=== PATIENT | male | born 1980 | race Caucasian/White ===

== ENCOUNTER 2017-12-29 10:32 | Observation (INO) ==
--- NOTE | 2017-12-29 11:01 | ERNOTE ---
Abdominal HPI - Narrative Date of Service: 12/29/17 - General Chief Complaint: Abdominal Pain Time Seen by Provider: 12/29/17 11:00 Source: patient Exam Limitations: no limitations - Immun/Allergies/Home Medications Immunizatons: IMMUNIZATION HX Immunizations Up to Date Yes Allergies/Adverse Reactions: Allergies Penicillins Allergy (Unknown, Verified 12/29/17 10:47) Home Medications: HOME MEDICATIONS NK [No Home Medication] 12/29/17 [Last Taken Unknown] - History of Present Illness Narrative: This 37-year-old man presents to the emergency room after being seen at the walk -in clinic. He has abdominal pain that began yesterday running when he woke up. He was out of town driving a semi. He was unable to make it home due to excessive pain and slept in his truck for 10 hours last night. He took multiple doses of Tylenol without much benefit. The pain began in the periumbilical region and has worsened. No fever or chills. He vomited once yesterday. He has not had diarrhea. He had a normal bowel movement this morning. No abdominal surgeries. He took some Pepto-Bismol without any improvement. He has not eaten anything today. He had water at 4 am. Date (Duration): 12/28/17 Timing: constant, getting worse Review of Systems - Review of Systems Constitutional: Present: no symptoms reported Respiratory: Present: no symptoms reported Cardiology: Present: no symptoms reported Gastrointestinal/Abdominal: Present: See HPI Genitourinary: Absent: dysuria, hematuria, decreased urinary output Musculoskeletal: Present: no symptoms reported Skin: Present: no symptoms reported Neurological: Present: no symptoms reported - Patient's Past Medical History Patient History - Medical: No pertinent hx Patient History - Cardiac/Respiratory: No pertinent hx Patient History - Cancer: No Hx of Cancer Patient History - Surgical Procedures: Back Surgery, Other Patient History - Other: None - Social History Living Situations: home Psych History: No pertinent hx Smoking Status: Never smoker Alcohol Use: none Drug Use: none - Immunizations Immunizations Up to Date: Yes Physical Exam - Physical Exam General Appearance: Present: wd/wn, moderate distress Head Exam: Present: normal inspection, no evidence of injury Respiratory: Present: no respiratory distress, normal breath sounds, lungs clear Cardiovascular/Chest: Present: regular rate, rhythm, no murmur Gastrointestinal/Abdominal: Present: normal bowel sounds, tenderness, guarding. Absent: rebound - RLQ Back Exam: Present: normal inspection, no CVA tenderness Extremity Exam: Present: normal inspection Neurological Exam: Present: alert, oriented, normal mood/affect Skin Exam: Present: normal color ED Progress - Date and Time Seen: Date and Time: 12/29/17 12:00 - Results and Orders Patient's Lab Results:: I have reviewed the patient's lab results. - Vital Signs Patient's Vital Signs:: I have reviewed the patient's vital signs. Vital Signs: Vital Signs 12/29/17 10:44 Temperature 37.0 C Pulse Rate 87 Respiratory 15 Rate Blood Pressure 144/84 O2 Sat by Pulse 98 Oximetry - CT/Ultrasound CT/Ultrasound Narrative: RLQ stranding, likely appendicitis. Repetitive whining about "lack of oral and IV contrast" noted x 3. - Progress/Reassessment Chief Complaint: Abdominal Pain Plan - Plan Plan: Discussed with Dr. Robledo prior to radiologist report as clearly appendicitis. He came to ER, saw patient, and took to ER. Successful appendectomy performed. Doing CT without IV and oral contrast expedited time to OR with an empty stomach. Departure Clinical Impression: Acute appendicitis with localized peritonitis - Departure Disposition: Short Term Hospital Inpatient Condition: Fair
[2017-12-29 11:04] LABS: Hematocrit 49.3 % (42.0-52.0); Hemoglobin 16.9 gm/dL (13.5-18.0); Mean Corpuscular Hemoglobin 30.5 pg (27-31); Mean Corpuscular Hgb Conc 34.3 g/dl (32-36); Mean Platelet Volume 11.3 fl (6.0-9.5); Neutrophil # 14.7 K/mm3 (1.3-6.0); Neutrophil % 83.1 % (42-75.0); Platelet Count 184 K/mm3 (150-450); Red Blood Count 5.54 M/mm3 (4.7-6.0); Red Cell Distribution Width 11.7 % (11.5-14.0); White Blood Count 17.7 K/mm3 (4.0-10.5)
[2017-12-29 11:11] LABS: Urine Appearance Clear (CLEAR); Urine Bacteria None Seen; Urine Bilirubin Negative (NEGATIVE); Urine Blood Negative /ul (NEGATIVE); Urine Color Yellow; Urine Ketone Negative (NEGATIVE); Urine Nitrite Negative (NEGATIVE); Urine Protein Negative (NEGATIVE); Urine RBC None Seen /hpf (0-5); Urine Urobilinogen Normal (NORMAL); Urine WBC None Seen /hpf (0-5)
[2017-12-29] MEDS ORDERED: HYDROmorphone HCL 1 MG/ML DISP.SYRIN IV ONE ×2 (11:13→13:20)
[2017-12-29] MEDS ORDERED: ONDANSETRON HCL/PF 2 MG/ML VIAL ONE (11:14)
[2017-12-29] MEDS ORDERED: ONDANSETRON HCL/PF 2 MG/ML VIAL IV ONE (11:14)
[2017-12-29] MEDS ORDERED: HYDROmorphone HCL 2 MG/ML VIAL ONE (11:14)
[2017-12-29 11:17] LABS: Albumin * 4.2 gm/dl (3.4-5.0); Anion Gap 10.7 mmol/L (6.8-13.8); BUN/Creatinine Ratio 8.8 (9.0-21.6); Bilirubin, Total 0.9 mg/dL (0.0-1.1); Ca. Corrected For Albumin 8.7 mg/dL (8.4-10.2); Calcium * 9.2 mg/dL (7.9-10.9); Potassium 3.7 mmol/L (3.4-4.6); Total Protein 7.9 gm/dL (6.2-8.2)
[2017-12-29] MEDS ORDERED: CEFOXITIN SODIUM 2 GM in DEXTROSE 5 % IN WATER 100 ML IV PRN ×2 (12:59)
--- NOTE | 2017-12-29 13:03 | HP ---
Chief Complaint - Chief Complaint Date of Service: 12/29/17 Time of Service: 13:00 Chief Complaint: abdominal pain History of Present Illness: Started with mid abdominal pain yesterday AM. 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 Pain continued and got very severe so he went to [facility] and was triaged to ER. WBC is elevated and CT shows acute appendicitis with gas at the tip. - Patient's Past Medical History Patient History - Medical: No pertinent hx Patient History - Cardiac/Respiratory: No pertinent hx Patient History - Cancer: No Hx of Cancer Patient History - Surgical Procedures: Back Surgery, Other Patient History - Other: None - Family History Family History:: no untoward family reactions to anesthesia, no familial bleeding tendencies - Social History Living Situations: home Psych History: No pertinent hx Smoking Status: Never smoker Alcohol Use: none Drug Use: none - Immunizations Immunizations Up to Date: Yes Review Of Systems (GEN) - Review of Systems Generalized/Overall Review: Absent: Chills, Fever EENTM: Present: No Symptoms Reported Respiratory: Present: No Symptoms Reported Cardiac: Present: No Symptoms Reported Abdominal: Present: Vomiting, Abdominal Pain, Other - had a BM yesterday Genitourinary: Present: No Symptoms Reported Musculoskeletal: Present: No Symptoms Reported Neurological: Present: No Symptoms Reported Skin: Present: No Symptoms Reported Misc: All systems neg except as marked Immunizations: IMMUNIZATION HX Immunizations Up to Date Yes Allergies/Adverse Reactions: Allergies Allergy/AdvReac Type Severity Reaction Status Date / Time Penicillins Allergy Unknown Verified 12/29/17 10:47 Home Medications: HOME MEDICATIONS NK [No Home Medication] 12/29/17 [Last Taken Unknown] Exam - Exam Vital Signs: Vital Signs - Last Taken Temp 37.0 C 12/29/17 10:44 Pulse 82 12/29/17 11:37 Resp 15 12/29/17 11:37 BP 128/78 12/29/17 11:37 Pulse Ox 93 12/29/17 11:37 Constitutional: Present: Alert, Oriented x3, Cooperative, Well developed, Well nourished, Mild distress ENT Exam: Present: normal ENT inspection, other - Malampati 4 airway Eye Exam: bilateral eye: normal inspection Neck: Present: full range of motion Back Exam: Present: normal inspection Respiratory: Present: lungs clear, normal breath sounds, no respiratory distress Cardiovascular/Chest: Present: normal peripheral pulses, regular rate, rhythm, no murmur Peripheral Pulses: radial (R): 4+, radial (L): 4+ Abdomen: Present: other - distended, tympanitic, VERY tender RLQ and also tender left side, guards only on right /Rectal: Present: Exam deferred Extremity: Present: normal range of motion, normal inspection, no pedal edema, no calf tenderness Skin Exam: Present: normal color, warm/dry 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, normal cerebellar test, no motor/ sensory deficits Appearance: Present: appropriate appearance, appropriate insight, neat Eye contact: Present: cooperative, good eye contact, normal speech Thoughts: Present: normal thought pattern Diagnostic Studies: Abnormal Lab Results 12/29/17 12/29/17 Range/Units 10:57 10:57 WBC 17.7 H (4.0-10.5) K/mm3 MPV 11.3 H (6.0-9.5) fl Immature Gran # (Auto) 0.07 H (0.000-0.0310) K/mm3 Neutrophils % 83.1 H (42-75.0) % Lymphocytes % 8.2 L (20-51) % Neutrophils # 14.7 H (1.3-6.0) K/mm3 Lymphocytes # 1.44 L (1.5-3.5) k/mm3 Monocytes # 1.4 H (0.0-1.0) k/mm3 BUN/Creatinine Ratio 8.8 L (9.0-21.6) Random Glucose 114 H (70-110) mg/dL Laboratory Results WBC 17.7 K/mm3 (4.0-10.5) H 12/29/17 10:57 RBC 5.54 M/mm3 (4.7-6.0) 12/29/17 10:57 Hgb 16.9 gm/dL (13.5-18.0) 12/29/17 10:57 Hct 49.3 % (42.0-52.0) 12/29/17 10:57 MCV 89.0 fl (78-100) 12/29/17 10:57 MCH 30.5 pg (27-31) 12/29/17 10:57 MCHC 34.3 g/dl (32-36) 12/29/17 10:57 RDW 11.7 % (11.5-14.0) 12/29/17 10:57 Plt Count 184 K/mm3 (150-450) 12/29/17 10:57 MPV 11.3 fl (6.0-9.5) H 12/29/17 10:57 Immature Gran % (Auto) 0.40 % (0.001-0.429) 12/29/17 10:57 Immature Gran # (Auto) 0.07 K/mm3 (0.000-0.0310) H 12/29/17 10:57 Neutrophils % 83.1 % (42-75.0) H 12/29/17 10:57 Lymphocytes % 8.2 % (20-51) L 12/29/17 10:57 Monocytes % 8.0 % (0.0-9) 12/29/17 10:57 Eosinophils % 0.1 % (0.0-3.0) 12/29/17 10:57 Basophils % 0.2 % (0.0-1.0) 12/29/17 10:57 Nucleated RBC % 0.0 k/mm3 (0-1) 12/29/17 10:57 Neutrophils # 14.7 K/mm3 (1.3-6.0) H 12/29/17 10:57 Lymphocytes # 1.44 k/mm3 (1.5-3.5) L 12/29/17 10:57 Monocytes # 1.4 k/mm3 (0.0-1.0) H 12/29/17 10:57 Eosinophils # 0.0 k/mm3 (0.0-0.7) 12/29/17 10:57 Absolute Basophils 0.0 k/mm3 (0.0-0.1) 12/29/17 10:57 Sodium 139 mmol/L (132-142) 12/29/17 10:57 Plasma Sodium 139 mmol/L (130-142) 12/29/17 10:57 Potassium 3.7 mmol/L (3.4-4.6) 12/29/17 10:57 Chloride 102 mmol/L (97-106) 12/29/17 10:57 Carbon Dioxide 30.0 mmol/L (24-32.6) 12/29/17 10:57 Anion Gap 10.7 mmol/L (6.8-13.8) 12/29/17 10:57 BUN 9 mg/dL (6-23) 12/29/17 10:57 Creatinine 1.02 mg/dL (0.4-1.4) 12/29/17 10:57 Est GFR (Non-Af Amer) 87 mL/min (60-130) 12/29/17 10:57 BUN/Creatinine Ratio 8.8 (9.0-21.6) L 12/29/17 10:57 Random Glucose 114 mg/dL (70-110) H 12/29/17 10:57 Calcium 9.2 mg/dL (7.9-10.9) 12/29/17 10:57 Calcium Adj for Albumin 8.7 mg/dL (8.4-10.2) 12/29/17 10:57 Total Bilirubin 0.9 mg/dL (0.0-1.1) 12/29/17 10:57 AST 8 U/L (0-48) 12/29/17 10:57 ALT 29 U/L (19-67) 12/29/17 10:57 Alkaline Phosphatase 71 U/L (50-170) 12/29/17 10:57 Total Protein 7.9 gm/dL (6.2-8.2) 12/29/17 10:57 Albumin 4.2 gm/dl (3.4-5.0) 12/29/17 10:57 Urine Color Yellow 12/29/17 10:57 Urine Appearance Clear (CLEAR) 12/29/17 10:57 Urine pH 6.0 pH (5.0-7.0) 12/29/17 10:57 Ur Specific [place] 1.020 SP.GR. (1.005-1.030) 12/29/17 10:57 Urine Protein Negative mg/dL (NEGATIVE) 12/29/17 10:57 Urine Glucose (UA) Negative mg/dL (NEGATIVE) 12/29/17 10:57 Urine Ketones Negative mg/dL (NEGATIVE) 12/29/17 10:57 Urine Blood Negative /ul (NEGATIVE) 12/29/17 10:57 Urine Nitrate Negative (NEGATIVE) 12/29/17 10:57 Urine Bilirubin Negative mg/dl (NEGATIVE) 12/29/17 10:57 Urine Urobilinogen Normal EU/dl (NORMAL) 05/05/18 10:57 Ur Leukocyte Esterase Negative /ul (NEGATIVE) 12/29/17 10:57 Urine RBC None seen /hpf (0-5) 12/29/17 10:57 Urine WBC None seen /hpf (0-5) 12/29/17 10:57 Ur Epithelial Cells None seen /hpf (0-5) 12/29/17 10:57 Urine Bacteria None seen (NONE) 12/29/17 10:57 Urine Culture Comments No culture indicated 12/29/17 10:57 Assessment/Plan - Assessment/Plan (1) Appendicitis, acute, with peritonitis Assessment: He has been sick since yesterday. He does not know what his reaction to PCN was (5yo with tonsils). Explained appendicitis and treatment. Risks of surgery explained and expected post op course outlined. After an interactive discussion, his questions were answered to his apparent satisfaction and informed consent for appendectomy obtained. Chlorhexidine wipes, SCD's, will use IV Mefoxin. Problem: Acute (2) Acute appendicitis with localized peritonitis Problem: Acute
[2017-12-29] MEDS: RINGER'S SOLUTION,LACTATED 1,000 ML IV PRN ×3 (13:20→23:49)
[2017-12-29] MEDS ORDERED: BUPIVACAINE HCL/EPINEPHRINE 50 ML VIAL IJ ONE ×2 (14:15)
[2017-12-29] MEDS ORDERED: RINGER'S SOLUTION,LACTATED 1,000 ML IV ONE (14:50)
[2017-12-29] MEDS ORDERED: MORPHINE SULFATE 4 MG/ML SYRG IV PRN (15:19)
--- NOTE | 2017-12-29 15:34 | OR ---
Operative Report - Dictated Report Narrative: Date of operation 12/29/2017 Preoperative diagnosis: Acute appendicitis Postoperative diagnosis: Acute gangrenous appendicitis Operation: Laparoscopic appendectomy Surgeon: MYRIAM Robledo MD Anesthesia: Gen. endotracheal (glide scope assisted intubation) Case Costa CRNA Indications for procedure: The patient is a 37-year-old male who began with generalized abdominal pain yesterday morning. The pain continued and became more severe. He was initially seen in the [facility] and triaged to the ER. He was found to have direct and rebound tenderness in the right lower quadrant with an elevated white blood cell count and CT scan evidence of acute appendicitis. Findings: Acute gangrenous appendicitis Narrative of procedure: The patient was identified preoperatively, and prior to the administration of anesthetic a multidisciplinary timeout was observed. The patient was placed supine, SCDs were applied, and 2 g of intravenous Mefoxin administered. Channing scope assisted endotracheal intubation was performed and general endotracheal anesthetic was administered. The patient's abdomen was prepped with Betadine solution, and a generous operating field outlined with 4 sterile towels. The remainder the patient was covered with a sterile disposable drape. A transverse infraumbilical skin incision was made, and dissection was carried along the umbilical stalk until the fascia of the linea alba was encountered. This was incised. The peritoneum was elevated and incised to allow entry into the abdomen under direct vision. A Hussan cannula was placed and the abdomen insufflated with CO2. The laparoscopic camera was introduced and the abdomen briefly explored. Those portions of the liver, stomach, small bowel, and colon visualized appeared normal. There was a small amount of clear green fluid in the right lower quadrant. The appendix was not immediately visible. Next under direct vision, 2 additional working ports were inserted through separate skin incisions, one in the suprapubic area one in the left lower quadrant. The appendix was located medial to the cecum and seem to be acutely inflamed. The tip was between loops of small bowel in the right upper quadrant. The appendix was liberated by blunt dissection and elevated. A window was created adjacent to the appendiceal base which was then transected with a laparoscopic SUSANA stapling device. The stump of the appendix was seen to be hemostatic and gas and liquid tight. The mesoappendix was divided with 2 applications of a SUSANA laparoscopic stapling device. It was seen to be hemostatic. The appendix was placed in an Endobag and parked in the right lower quadrant. The right lower quadrant was suctioned clean and hemostasis was again assured. The small working ports were then withdrawn under direct vision to ensure entry site hemostasis. The appendix was removed in conjunction with the Hussan cannula. The pneumoperitoneum was allowed to escape, and after receiving a correct sponge needle and instrument count attention was turned to closing the abdomen. The fascia and peritoneum at the umbilicus were approximated with interrupted sutures of #1 Vicryl. Skin incisions were approximated with interrupted vertical mattress sutures of 4-0 nylon. The operative sites were washed and dried. Dressings of Bactroban ointment and large Band-Aids were applied to the small port sites. The umbilical incision was dressed with Bactroban ointment, 2 x 2, large Band-Aid, and Medipore tape. The operative procedure was terminated at this point. There was no measurable blood loss. 0.5% Marcaine with epinephrine was used for local anesthetic infiltration area the appendix was submitted to pathology. The patient tolerated the anesthetic and procedure well without complication and was transferred to the recovery room awake, extubated, and in stable condition. Reviewed and electronically signed
[2017-12-29] MEDS: oxyCODONE HCL/ACETAMINOPHEN 1 TAB TABLET PO PRN (17:40)
[2017-12-29] MEDS: CEFOXITIN SODIUM 2 GM in DEXTROSE 5 % IN WATER 100 ML IV SCH ×2 (19:59)
[2017-12-30] MEDS: CEFOXITIN SODIUM 2 GM in DEXTROSE 5 % IN WATER 100 ML IV SCH ×4 (02:04→08:11)
[2017-12-30] MEDS: oxyCODONE HCL/ACETAMINOPHEN 1 TAB TABLET PO PRN ×2 (04:13→10:21)
--- NOTE | 2017-12-30 12:12 | DS ---
(1) Appendicitis, acute, with peritonitis Problem: Acute (2) Acute appendicitis with localized peritonitis Problem: Acute Description of Stay: Had laparoscopic appendectomy for acute gangrenous appendicitis. Chlorhexidine wipes, SCD's, pre and post operative IV Mefoxin. Apex scope assisted intubation. Tolerated procedure well, VS remained normal. Presenting pain resolved and incisional discomfort tolerable on po Percocet. Tolerated advanced diet. OOB independently. Dressings dry. He did miss one post-operative dose of Mefoxin. Home, RTC 01/08/18. Rx Percocet 5/325mg #20. Instructions and phone #'s given. Procedures Performed: see notes below - laparoscopic appendecotmy Discharge Location: Home Disposition: Home self-care Condition: Good Discharge Activity: Activity as tolerated, No Lifting Discharge Diet: General/regular food Problem Oriented Discharge Instructions to Patient/Family: Laparoscopic Appendectomy, Adult Additional Patient Instructions (free text): he is to call office [phone] on 12/31/17 for f/u appointment 01/08/18 Complete Home Medications List: Complete Home Medication List: oxyCODONE HCL/ACETAMINOPHEN [Percocet 5 MG/325 MG] 2 tab PO Q6H PRN #20 tablet 12/30/17
[2017-12-30 13:16] VITALS: BP 121/65
== END 2017-12-30 13:15 | disposition home or self-care (01) ==
LOC: ER 10:32 → AMB 12:35 → MS 14:57
PROVIDERS: ADMIT Surgery; ATTEND Surgery
DX: K35.3 Acute appendicitis with localized peritonitis
CPT/HCPCS: 36415; 74176; 80053; 81001; 85025; 88304; 96361; 96375; 96376; 99284; G0378; J2405